=== PATIENT | female | born 1995 ===

== ENCOUNTER 2024-09-16 13:06 | Inpatient (IN) | payer BC, SELFPAY ==
--- NOTE | ~2024-09-16 | XR_ITS ---
CLINICAL HISTORY: left shoulder pain 4 view left shoulder Comparison: None Findings: Bones intact. No dislocations. No significant loss of joint space or osteophytes. No erosions. No radiopaque foreign body. IMPRESSION: 1. No acute findings This document has been electronically signed by: Karla Kaplan MD on 09/16/2024 17:37:06
--- NOTE | ~2024-09-16 | XR_ITS ---
CLINICAL HISTORY: left wrist pain 4 view left hand Comparison: None Findings: Bones intact. No dislocations. 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 No significant arthritic change. No erosions. No radiopaque foreign body. IMPRESSION: No acute findings. 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 This document has been electronically signed by: Karla Kaplan MD on 09/16/2024 17:44:36
--- NOTE | ~2024-09-16 | XR_ITS ---
EXAMINATION: XR MANDIBLE CLINICAL INFORMATION: left mandible trauma COMPARISON: None available. TECHNIQUE: 5 views of the mandible were obtained. FINDINGS: There are no fractures or dislocations. TM joints appear aligned. No bone, joint or soft tissue abnormality is demonstrated. Mandible appears intact. No air-fluid levels in the sinuses. There are nose rings present. XR/XR mandible <4V IMPRESSION: No acute bony abnormalities. Electronically signed by: Jasper Stroud MD 09/20/2024 08:46 AM [facility]
--- NOTE | 2024-09-16 13:13 | ED_ITS ---
HPI - Psych General Chief Complaint: Psychiatric Symptoms Stated Complaint: SI Time Seen by Provider: 09/16/24 13:12 Source: EMS Mode of arrival: EMS History of Present Illness HPI Narrative: 28 years old the patient was brought by ambulance complaining of SI, she was extremely agitated she was restrained by the police. She is now more calm cooperative complaint: suicidal ideation and feels depressed Onset (ago): hour(s) (2) Duration: constant History of same: Yes Relieving factors: none Exacerbating factors: none Associated psychiatric symptoms: none Related Data Allergies Allergy/AdvReac Type Severity Reaction Status Date / Time amoxicillin Allergy Unknown Verified 09/16/24 13:52 Iodinated Contrast Media Allergy Unknown Verified 09/16/24 13:52 [IV Contrast Dye] shrimp Allergy Unknown Verified 09/16/24 13:52 Review of Systems Constitutional: Constitutional: Reports no additional constitutional complaints Cardiovascular: Cardiovascular: Reports no additional cardiovascular complaints Psychiatric: Psychiatric: Reports no additional psychiatric complaints [facility] Past Medical History Attestation statement: The following information was validated with the patient. [facility] Narrative: Depression Physical Exam Vital Signs: Vital Signs: Last Vital Signs Resp 16 09/16/24 13:48 BMI result Body Mass Index 39.1 Const: General: well developed, alert and awake Nutritional Appearance: well nourished Orientation/consciousness: patient oriented x3 HEENT: Head: Yes normal to inspection General nose exam: Normal external nose present Face and sinus: Yes normal facial exam Mouth: Normal oral and palatal mucosa present Neck: Neck: Yes normal visual inspection Chest: Chest palpation & inspection: normal inspection of the chest Resp: Effort & Inspection: normal respiratory effort Auscultation: clear to auscultation bilaterally Cardio: Jugular venous distension: no JVD Rate: regular rate Rhythm: regular rhythm GI: Inspection: Yes normal to inspection Palpation (GI): Soft to palpation and not firm Auscultation: normal bowel sounds Neuro: General: patient oriented x3 Psych: Speech and movement: Clear speech present Affect: Anxious affect present Course Reevaluation(s) Reevaluation #1: Patient was seen by crisis the patient is inpatient level of care Section 12 bed search Time: 15:25 Medications Administered Discontinued Medications Generic Name Dose Route Start Last Admin Trade Name Freq PRN Reason Stop Dose Admin Lorazepam 2 mg 09/16/24 13:12 09/16/24 13:15 Lorazepam 1 Mg Tablet PO 02/24/25 13:13 2 mg ONCE ONE Administration Medical Decision Making Lab Data Labs: Lab Results 09/16/24 Range/Units 12:21 Urine Color Yellow Urine Appearance Clear Urine pH 7.0 (5.0-9.0) Ur Specific [place] 1.010 (1.005-1.025) Urine Protein Negative (Neg-Trace) mg/dL Urine Glucose (UA) Negative (Negative) mg/dL Urine Ketones Negative (Negative) mg/dL Urine Blood Negative (Negative) Urine Nitrite Negative (Negative) Ur Leukocyte Esterase Negative (Negative) Urine Test NEGATIVE (NEGATIVE) Urine Opiates Screen Not Detected (Not Detect) Ur Buprenorphine Scrn Not Detected (Not Detect) ng/mL Ur Oxycodone Screen Not Detected (Not Detect) ng/mL Urine Methadone Screen Not Detected (Not Detect) ng/mL Urine Fentanyl Screen Not Detected (Not Detect) Ur Barbiturates Screen Not Detected (Not Detect) Ur Phencyclidine Scrn Not Detected (Not Detect) Ur Amphetamines Screen Not Detected (Not Detect) U Benzodiazepines Scrn Not Detected (Not Detect) Urine Cocaine Screen Not Detected (Not Detect) U Marijuana (THC) Screen POSITIVE H (Not Detect) Discharge Plan Discharge Clinical Impression: Suicidal ideations Patient Disposition: Still a Patient
[2024-09-16] MEDS: LORazepam 1 MG TABLET 2 MG PO (13:15)
--- NOTE | 2024-09-16 13:34 | PC.NURSE ---
patient presents with PD presence on section 12, patient hand cuffed bilat hands and ankles in retraints. patient brought in for SI statements over span of 1 week per HPD. 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 patient then told girlfriend they did not want to be alive anymore, that they would go into the [place] and not be found, and to take certain belongings. patient is refusing to give any information to staff, patient refusing to wear patient bracelet stating thats not their name when asking patient preferred name and pronouns patient tells staff to fuck off. patient uncooperative during changeover process, ED charge nurse with this RN for safety in bathroom, patient eventually changed into hospital attire. patient belongings secured by security. patient agreeable to take meds per SEP. patient has sitter 1:1 for safety, UA sent.
[2024-09-16 13:43] LABS: UPreg QC Valid YES; Urine Pregnancy NEGATIVE (NEGATIVE)
[2024-09-16 13:44] LABS: Appearance Urine Clear; Color Urine Yellow; Glucose Urine UA Negative (Negative); Leukocyte Esterase Urine Negative (Negative); Nitrite Urine Negative (Negative); Urine Blood Negative (Negative); Urine Ketones Negative (Negative); Urine Protein Negative (Neg-Trace)
[2024-09-16 13:48] VITALS: RESP 16; BMI 39.1
[2024-09-16 13:54] LABS: Amphetamine Screen Urine Not Detected (Not Detect); Barbiturates, Urine Not Detected (Not Detect); Benzodiazepines Screen Urine Not Detected (Not Detect); Buprenorphine Scr Not Detected (Not Detect); Cannabinoid Screen Urine POSITIVE (Not Detect); Cocaine Screen Urine Not Detected (Not Detect); Fentanyl, urine Not Detected (Not Detect); Methadone Screen, Urine Not Detected (Not Detect); Opiate Screen Urine Not Detected (Not Detect); Oxycodone Screen Urine Not Detected (Not Detect); Phencyclidine Screen Urine Not Detected (Not Detect)
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
--- NOTE | 2024-09-16 19:06 | PC.NURSE ---
patient refusing to be cooperative with med rec, stating, I don't want to be admitted so why would i help you with anything.
--- NOTE | 2024-09-16 19:43 | PC.NURSE ---
Trevort found to be sleeping with blankets around head and neck, staff went in to removed all blanekts for safety of patient at this time. Patient used explitive language towards staff. will continue to monitor the situation.
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
--- NOTE | 2024-09-16 19:51 | PC.NURSE ---
Addendum entered by Clemencia Singh RN 09/16/24 22:08: Patient stated, i will shove that medication down your throat. quit asking me. Original Note: Offered PRN medication, patient would not respond to staff.
--- NOTE | 2024-09-16 20:05 | PC.NURSE ---
Security here for safety again. Patient upset that phone was turned off. Phone was turned off at her girl friends request because she was repeatedly calling over and over. Patient then went to room, threw chair out of room. took off sheet and pillow case and wrapped herelf in them in the corner of the room around her head again. Sheet and pillow case were removed for patient safety/
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
--- NOTE | 2024-09-16 20:39 | PC.NURSE ---
Patient asked to speak to someone from care team; Ludy presented to the door to have a conversation with patient and they were berating not only Ludy but other staff in the vicinity. We have offered to have the mattress brought back and pillows but patient states that she will just put everything back over head and around neck again if given back.
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
[2024-09-16] MEDS: Haloperidol Lactate 5 MG/ML VIAL IM ×2 (21:30→23:31)
[2024-09-16] MEDS: diphenhydrAMINE HCL 50 MG/ML VIAL IM (21:30)
[2024-09-16] MEDS: LORazepam 2 MG/ML VIAL IM ×2 (21:30→23:29)
--- NOTE | 2024-09-16 22:31 | PC.NURSE ---
This RN offered patient water while in restraints. Patient refused water.
--- NOTE | 2024-09-16 22:43 | PC.NURSE ---
patient asking for water, patient given water.
--- NOTE | 2024-09-16 22:44 | PC.NURSE ---
Patient offered tylenol after complaining of jaw pain. Patient refused tylenol
--- NOTE | 2024-09-16 23:57 | PC.NURSE ---
patient continues as irritable and arugmentative in restraint, prior to t.ws arrival staff relay she has been dirsuptive and spitting at staff. client is given criteria to move forward out of restraint, prior to administration of medication patient seemed amenable to oral medications then later swearing at staff.will continue to monitor and anticipate postivie effects of medications.
[2024-09-17 06:00] VITALS: RESP 16
--- NOTE | 2024-09-17 07:08 | PC.NURSE ---
Assumed care of patient at 0645, patient appears to be sleeping, respirations even and unlabored, no apparent distress noted. Per night RN, patient received multiple IM medications due to verbal aggression episodes. Continue plan of care for IPLOC
[2024-09-17 08:08] VITALS: RESP 14
--- NOTE | 2024-09-17 12:31 | PHA.MEDREC ---
Addendum entered by Maco Fernández RPh 09/17/24 14:26: Med rec was reviewed by [facility]. Original Note: Pharmacy Consult ? Medication Reconciliation Pharmacy reviewed med rec done by nursing. Claims matches what was confirmed.
[2024-09-17 15:07] VITALS: RESP 18
--- NOTE | 2024-09-17 15:07 | PC.NURSE ---
Patient has been sleeping, respirations even and unlabored, no apparent distress noted. Plan for admission hopefully tomorrow due to staffing issues on floor
[2024-09-18 06:36] VITALS: BP 106/61; PULSE 87; RESP 16; TEMP 36.4; O2SAT 96
--- NOTE | 2024-09-18 07:31 | PC.NURSE ---
Assumed care of patient at 0645, patient appears to be sleeping, respirations even and unlabored, no apparent distress noted. Continue plan of care fot iploc
--- NOTE | 2024-09-18 15:14 | PC.NURSE ---
Assumed care of this patient at 1500, patient resting on bed at this time, resps even / unlabored.
--- NOTE | 2024-09-18 16:18 | PC.NURSE ---
Patient's significant other Marisabel called w/ patient's therapist's number Elly [phone], requested to give number to patient when patient wakes up.
[2024-09-18] MEDS: Acetaminophen 325 MG TABLET 650 MG PO (17:26)
--- NOTE | 2024-09-18 18:37 | PC.NURSE ---
Pt. continues to refuse lab work.
[2024-09-18 21:40] VITALS: BP 140/87; PULSE 110; RESP 18; TEMP 36.4; O2SAT 97
[2024-09-18 22:31] VITALS: BP 140/87; PULSE 110; TEMP 36.4; O2SAT 97
--- NOTE | 2024-09-19 04:46 | PC.ADMIT ---
Patient arrived on unit at 2217 from [facility] having declined to sign CV. Hina prefers to be called Tatiana and uses they/them pronouns. Tatiana presented to [facility] secondary to stating via text and phone call that she doesn't want to be alive anymore. Patient is alert and oriented x4 with poor eye contact and low tone, mumbled speech. Patient denies SI at this time. Safety check performed, vital signs and height/weight obtained. Oriented to unit. Placed on 15 minute checks and went to bed. Tatiana has remained in room throughout the shift and appears to have been sleeping soundly. Tox screen positive for cannabis. Patient reports having been off medications. Patient reports having a therapist and psychiatrist. Denies trauma history. Reports having stable housing and work.
[2024-09-19 08:00] VITALS: BP 112/59; PULSE 94; RESP 16; TEMP 36.9; O2SAT 97
[2024-09-19] MEDS: Acetaminophen 325 MG TABLET 650 MG PO ×2 (08:56→17:15)
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
[2024-09-19] MEDS: Omeprazole 20 MG CAPSULE.DR PO (09:25)
[2024-09-19] MEDS: Albuterol Sulfate 90 MCG 8 GM INHALER 2 PUFF INHALE (19:00)
[2024-09-19 19:48] VITALS: BP 130/78; PULSE 99; TEMP 37.6; O2SAT 99
[2024-09-20 08:00] VITALS: BP 118/67; PULSE 77; TEMP 36.9; O2SAT 96
[2024-09-20] MEDS: Albuterol Sulfate 90 MCG 8 GM INHALER 2 PUFF INHALE ×2 (08:56→14:51)
[2024-09-20] MEDS: Omeprazole 20 MG CAPSULE.DR PO (08:57)
[2024-09-20] MEDS: Acetaminophen 325 MG TABLET 650 MG PO ×2 (09:25→21:43)
[2024-09-20] MEDS: Ibuprofen 800 MG TABLET PO (09:55)
--- NOTE | 2024-09-20 11:17 | HO.PSYCHPN ---
Subjective Subjective Date of Service: 09/20/24 Reason For Visit: SI Subjective Notes: Section 12B Healthcare Proxy: No Guardianship: No Medical Problems Affecting Mental Status: No Interim History: Asking to discharge. Section XIIB expires 09/23/24. Declines medication intervention, group work, individual work. This is a waste of resources and I am bored. We will continue to monitor and be available as needed. Medication Compliance: No Side effects from medications: No Attending Groups: No Review of Systems Acute medical concerns: No Review of Systems Review of Systems denies Mental Status Exam Mental Status Exam Patient Appearance: Appropriate Patient Orientation: Person, Place, Time and Situation Level of Consciousness: Alert Patient Behavior: Guarded, Talkative and Good Eye Contact Mood Description: Suspicious and Withdrawn Affect Description: Withdrawn Patient Cognition Impaired: No Ability to Follow Directions: Good Speech Pattern: Spontaneous Speech Memory Description: Intact Hallucinations: None Delusions: Not Present Thought Content: positive for Suicidal Ideation (pt denies) Depressive Symptoms: Thoughts of /Suicide (pt denies) Judgement: Fair Diagnostics Vital Signs (24Hr): Vital Signs - 24 hr 09/19/24 19:48 09/20/24 08:00 Temperature 99.7 F 98.4 F Pulse Rate 99 77 Blood Pressure 130/78 118/67 Pulse Oximetry 99 96 Oxygen Delivery Method Room Air Room Air BMI result Body Mass Index 39.1 Imaging Radiology Impressions: ITS Impressions Mandible X-Ray 09/20/24 08:00 IMPRESSION: No acute bony abnormalities. Electronically signed by: Jasper Stroud MD 09/20/2024 08:46 AM [facility] [place] Medications Medications Current Medications Acetaminophen (Acetaminophen 325 Mg Tablet) 650 mg PO Q6H PRN PRN Reason: Headache/Pain, Scale 1-10 Last Admin: 09/20/24 09:25 Dose: 650 mg Al Hydroxide/Mg Hydroxide (Magnesium Hydrox/Alum Hydrox 30 Ml Oral.Susp) 30 ml PO Q6H PRN PRN Reason: Heartburn/Nausea Albuterol Sulfate (Albuterol Sulfate 90 Mcg 8 Gm Inhaler) 2 puff INHALE QID PRN PRN Reason: dyspnea Last Admin: 09/20/24 08:56 Dose: 2 puff Hydroxyzine HCl (Hydroxyzine Hcl 25 Mg Tablet) 25 mg PO Q6H PRN PRN Reason: mild anxiety Ibuprofen (Ibuprofen 800 Mg Tablet) 800 mg PO Q8H PRN PRN Reason: severe pain Last Admin: 09/20/24 09:55 Dose: 800 mg Lorazepam (Lorazepam 1 Mg Tablet) 1 mg PO DAILY PRN PRN Reason: severe anxiety Magnesium Hydroxide (Milk Of Magnesia 30 Ml Oral.Susp) 30 ml PO DAILY PRN PRN Reason: Constipation Nicotine (Nicotine 21 Mg Patch.Td24) 21 mg TRANSDERMA DAILY PRN PRN Reason: smoking cessation Nicotine Polacrilex (Nicotine Polacrilex 2 Mg Gum) 4 mg BUCCAL Q2H PRN PRN Reason: Nicotine Cravings Olanzapine (Olanzapine 5 Mg Tablet) 5 mg PO TID PRN PRN Reason: agitation Omeprazole (Omeprazole 20 Mg Capsule.Dr) 20 mg PO DAILY@0630 SYED Last Admin: 09/20/24 08:57 Dose: 20 mg Trazodone HCl (Trazodone Hcl 50 Mg Tablet) 50 mg PO BEDTIME MRX1 PRN PRN Reason: Insomnia Allergies Allergies Allergy/AdvReac Type Severity Reaction Status Date / Time amoxicillin Allergy Unknown Verified 09/16/24 13:52 Iodinated Contrast Media Allergy Unknown Verified 09/16/24 13:52 [IV Contrast Dye] shrimp Allergy Unknown Verified 09/16/24 13:52 Assessment & Plan Assessment & Plan (1) MDD (major depressive disorder), recurrent severe, without psychosis: Status: Acute Code(s): F33.2 - Major depressive disorder, recurrent severe without psychotic features (2) PTSD (post-traumatic stress disorder): Status: Acute Code(s): F43.10 - Post-traumatic stress disorder, unspecified Plan Patient is 28-year-old female (trans male?), they/them, with history of Austism, PTSD, depression, anxiety who presents for suicidal statements in the community. Patient is guarded and reticent, with downcast affect. Patient reports that this admission is a complete misunderstanding, the people in the community over reacted and that patient should be discharged immediately. Collateral provided information to the ED, saying that patient texted that they did not want to be alive anymore, would go to the [place] were no one would find them... And that at work, patient made a reference to putting their name on the whiteboard which is the practice of the job site to put someone's name there who has committed suicide. Patient denies texting anyone any suicidal statements; they say that the reference to putting their name on the whiteboard was just an offhand comment and without any real meaning. When asked why people were concerned that patient might be suicidal, patient explained the following: -week ago, while at work, patient through their phone in frustration -this past Monday, they had a Meeting w/ bosses was about a corrective action regarding this incident -after this meeting, patient says they texted friends asking for help to clean up the Fridge and that it could have any of the food they wanted -after the techs they went to sleep and did not answer the phone -patient surmises that people miss understood the text and because they did not answer the phone, became worried -Patient denies any depression or any history of depression; again denies any SI at all or that they made any SI statements. Later patient's partner/girlfriend showed up and confirmed that patient did in fact make suicidal statements and that patients depression had been worse over the past weeks. Patient's girlfriend also confirmed that patient did not want her to disclose this information to team, believing that this information would delay discharge 09/20/24: Continue plan of care Mandible x rays WNL Formulation/clinical reasoning: Patient has history depression which is confirmed to have been worsening over the past few weeks;; because patient wants discharge is minimizing depressive symptoms. Recently stopped Wellbutrin which was not effective. Currently patient does not want any help with medication management for anxiety or depression and continues to ask for discharge -patient denied any history of SI or SA however patient is currently not a reliable historian -patient reports history of anxiety with panic attacks 3 times a week however says able to cope with it Plan: Section 12 B Q 15 minute checks Continue home meds: vyvanse 30mg when working Ativan 0.5mg prn allergy/antacid Will get left side mandible x-ray; patient was restrained in the ED and says can feel jaw pain Reason for continued inpatient stay Substantial Risk for: rapid decompensation Time Spent With Patient Time: Total time managing care of this patient today ____ minutes.
[2024-09-20 20:00] VITALS: BP 131/84; PULSE 89; TEMP 36.4; O2SAT 98
[2024-09-20] MEDS: Loratadine 10 MG TABLET PO (21:43)
[2024-09-21] MEDS: Omeprazole 20 MG CAPSULE.DR PO (06:58)
[2024-09-21] MEDS: Loratadine 10 MG TABLET PO (08:41)
[2024-09-21] MEDS: Albuterol Sulfate 90 MCG 8 GM INHALER 2 PUFF INHALE (09:15)
[2024-09-21 09:31] VITALS: BP 122/78; PULSE 70; RESP 18; TEMP 36.5; O2SAT 98
[2024-09-21] MEDS: Ibuprofen 800 MG TABLET PO (13:25)
--- NOTE | 2024-09-21 18:17 | HO.PSYCHPN ---
Subjective Subjective Date of Service: 09/21/24 Reason For Visit: SI Interim History: asking for discharge, denies safety concerns. per staff, no schedule meds, doesn't want any. works for [employer] discharging monday. Mental Status Exam Mental Status Exam Patient Appearance: Appropriate Patient Orientation: Person, Place, Time and Situation Level of Consciousness: Alert Patient Behavior: Guarded and Good Eye Contact Mood Description: Suspicious and Withdrawn Affect Description: Withdrawn Patient Cognition Impaired: No Ability to Follow Directions: Good Speech Pattern: Spontaneous Speech Memory Description: Intact Hallucinations: None Delusions: Not Present Thought Content: positive for Suicidal Ideation (pt denies) Depressive Symptoms: Thoughts of /Suicide (pt denies) Judgement: Fair Diagnostics Vital Signs (24Hr): Vital Signs - 24 hr 09/20/24 20:00 09/21/24 09:31 Temperature 97.5 F 97.7 F Pulse Rate 89 70 Respiratory Rate 18 Blood Pressure 131/84 122/78 Pulse Oximetry 98 98 Oxygen Delivery Method Room Air Room Air BMI result Body Mass Index 39.1 Imaging Radiology Impressions: ITS Impressions Mandible X-Ray 09/20/24 08:00 IMPRESSION: No acute bony abnormalities. Electronically signed by: Jasper Stroud MD 09/20/2024 08:46 AM [facility] [place] Medications Medications Current Medications Acetaminophen (Acetaminophen 325 Mg Tablet) 650 mg PO Q6H PRN PRN Reason: Headache/Pain, Scale 1-10 Last Admin: 09/20/24 21:43 Dose: 650 mg Al Hydroxide/Mg Hydroxide (Magnesium Hydrox/Alum Hydrox 30 Ml Oral.Susp) 30 ml PO Q6H PRN PRN Reason: Heartburn/Nausea Albuterol Sulfate (Albuterol Sulfate 90 Mcg 8 Gm Inhaler) 2 puff INHALE QID PRN PRN Reason: dyspnea Last Admin: 09/21/24 09:15 Dose: 2 puff Hydroxyzine HCl (Hydroxyzine Hcl 25 Mg Tablet) 25 mg PO Q6H PRN PRN Reason: mild anxiety Ibuprofen (Ibuprofen 800 Mg Tablet) 800 mg PO Q8H PRN PRN Reason: severe pain Last Admin: 09/21/24 13:25 Dose: 800 mg Loratadine (Loratadine 10 Mg Tablet) 10 mg PO DAILY SYED Last Admin: 09/21/24 08:41 Dose: 10 mg Lorazepam (Lorazepam 1 Mg Tablet) 1 mg PO DAILY PRN PRN Reason: severe anxiety Magnesium Hydroxide (Milk Of Magnesia 30 Ml Oral.Susp) 30 ml PO DAILY PRN PRN Reason: Constipation Nicotine (Nicotine 21 Mg Patch.Td24) 21 mg TRANSDERMA DAILY PRN PRN Reason: smoking cessation Nicotine Polacrilex (Nicotine Polacrilex 2 Mg Gum) 4 mg BUCCAL Q2H PRN PRN Reason: Nicotine Cravings Olanzapine (Olanzapine 5 Mg Tablet) 5 mg PO TID PRN PRN Reason: agitation Omeprazole (Omeprazole 20 Mg Capsule.Dr) 20 mg PO DAILY@0630 [facility] TO [facility] Last Admin: 09/21/24 06:58 Dose: 20 mg Trazodone HCl (Trazodone Hcl 50 Mg Tablet) 50 mg PO BEDTIME MRX1 PRN PRN Reason: Insomnia Allergies Allergies Allergy/AdvReac Type Severity Reaction Status Date / Time amoxicillin Allergy Unknown Verified 09/16/24 13:52 Iodinated Contrast Media Allergy Unknown Verified 09/16/24 13:52 [IV Contrast Dye] shrimp Allergy Unknown Verified 09/16/24 13:52 Assessment & Plan Assessment & Plan (1) MDD (major depressive disorder), recurrent severe, without psychosis: Status: Acute Code(s): F33.2 - Major depressive disorder, recurrent severe without psychotic features (2) PTSD (post-traumatic stress disorder): Status: Acute Code(s): F43.10 - Post-traumatic stress disorder, unspecified Plan Patient is 28-year-old female (trans male?), they/them, with history of Austism, PTSD, depression, anxiety who presents for suicidal statements in the community. Patient is guarded and reticent, with downcast affect. Patient reports that this admission is a complete misunderstanding, the people in the community over reacted and that patient should be discharged immediately. Collateral provided information to the ED, saying that patient texted that they did not want to be alive anymore, would go to the [place] were no one would find them... And that at work, patient made a reference to putting their name on the whiteboard which is the practice of the job site to put someone's name there who has committed suicide. Patient denies texting anyone any suicidal statements; they say that the reference to putting their name on the whiteboard was just an offhand comment and without any real meaning. When asked why people were concerned that patient might be suicidal, patient explained the following: -week ago, while at work, patient through their phone in frustration -this past Monday, they had a Meeting w/ bosses was about a corrective action regarding this incident -after this meeting, patient says they texted friends asking for help to clean up the Fridge and that it could have any of the food they wanted -after the techs they went to sleep and did not answer the phone -patient surmises that people miss understood the text and because they did not answer the phone, became worried -Patient denies any depression or any history of depression; again denies any SI at all or that they made any SI statements. Later patient's partner/girlfriend showed up and confirmed that patient did in fact make suicidal statements and that patients depression had been worse over the past weeks. Patient's girlfriend also confirmed that patient did not want her to disclose this information to team, believing that this information would delay discharge 09/20/24: Continue plan of care Mandible x rays WNL 09/21: denies safety concerns, declines medications, asking for discharge. continue observation and offer medication. planning for monday discharge. Formulation/clinical reasoning: Patient has history depression which is confirmed to have been worsening over the past few weeks;; because patient wants discharge is minimizing depressive symptoms. Recently stopped Wellbutrin which was not effective. Currently patient does not want any help with medication management for anxiety or depression and continues to ask for discharge -patient denied any history of SI or SA however patient is currently not a reliable historian -patient reports history of anxiety with panic attacks 3 times a week however says able to cope with it Plan: Section 12 B Q 15 minute checks Continue home meds: vyvanse 30mg when working Ativan 0.5mg prn allergy/antacid Will get left side mandible x-ray; patient was restrained in the ED and says can feel jaw pain Reason for continued inpatient stay Substantial Risk for: harm to self and inability to function Time Spent With Patient Time: Total time managing care of this patient today ____ minutes.
[2024-09-21 20:00] VITALS: BP 118/69; PULSE 87; TEMP 36.7; O2SAT 97
[2024-09-22] MEDS: Omeprazole 20 MG CAPSULE.DR PO (07:26)
[2024-09-22 08:00] VITALS: BP 143/78; PULSE 73; RESP 18; TEMP 36.6; O2SAT 99
[2024-09-22] MEDS: Loratadine 10 MG TABLET PO (08:43)
[2024-09-22] MEDS: Albuterol Sulfate 90 MCG 8 GM INHALER 2 PUFF INHALE (08:44)
--- NOTE | 2024-09-22 16:01 | HO.PSYCHPN ---
Subjective Subjective Date of Service: 09/22/24 Reason For Visit: SI Interim History: lying in bed, asking about discharge. per staff, no change, no issues. Mental Status Exam Mental Status Exam Patient Appearance: Appropriate Patient Orientation: Person, Place, Time and Situation Level of Consciousness: Alert Patient Behavior: Guarded and Good Eye Contact Mood Description: Suspicious and Withdrawn Affect Description: Withdrawn Patient Cognition Impaired: No Ability to Follow Directions: Good Speech Pattern: Spontaneous Speech Memory Description: Intact Hallucinations: None Delusions: Not Present Depressive Symptoms: Thoughts of /Suicide (pt denies) Judgement: Fair Diagnostics Vital Signs (24Hr): Vital Signs - 24 hr 09/21/24 20:00 09/22/24 08:00 Temperature 98.0 F 98 F Pulse Rate 87 73 Respiratory Rate 18 Blood Pressure 118/69 143/78 H Pulse Oximetry 97 99 Oxygen Delivery Method Room Air Room Air BMI result Body Mass Index 39.1 Imaging Radiology Impressions: ITS Impressions Mandible X-Ray 09/20/24 08:00 IMPRESSION: No acute bony abnormalities. Electronically signed by: Jasper Stroud MD 09/20/2024 08:46 AM [facility] [place] Medications Current Medications Acetaminophen (Acetaminophen 325 Mg Tablet) 650 mg PO Q6H PRN PRN Reason: Headache/Pain, Scale 1-10 Last Admin: 09/20/24 21:43 Dose: 650 mg Al Hydroxide/Mg Hydroxide (Magnesium Hydrox/Alum Hydrox 30 Ml Oral.Susp) 30 ml PO Q6H PRN PRN Reason: Heartburn/Nausea Albuterol Sulfate (Albuterol Sulfate 90 Mcg 8 Gm Inhaler) 2 puff INHALE QID PRN PRN Reason: dyspnea Last Admin: 09/22/24 08:44 Dose: 2 puff Hydroxyzine HCl (Hydroxyzine Hcl 25 Mg Tablet) 25 mg PO Q6H PRN PRN Reason: mild anxiety Ibuprofen (Ibuprofen 800 Mg Tablet) 800 mg PO Q8H PRN PRN Reason: severe pain Last Admin: 09/21/24 13:25 Dose: 800 mg Loratadine (Loratadine 10 Mg Tablet) 10 mg PO DAILY SYED Last Admin: 09/22/24 08:43 Dose: 10 mg Lorazepam (Lorazepam 1 Mg Tablet) 1 mg PO DAILY PRN PRN Reason: severe anxiety Magnesium Hydroxide (Milk Of Magnesia 30 Ml Oral.Susp) 30 ml PO DAILY PRN PRN Reason: Constipation Nicotine (Nicotine 21 Mg Patch.Td24) 21 mg TRANSDERMA DAILY PRN PRN Reason: smoking cessation Nicotine Polacrilex (Nicotine Polacrilex 2 Mg Gum) 4 mg BUCCAL Q2H PRN PRN Reason: Nicotine Cravings Olanzapine (Olanzapine 5 Mg Tablet) 5 mg PO TID PRN PRN Reason: agitation Omeprazole (Omeprazole 20 Mg Capsule.Dr) 20 mg PO DAILY@0630 SYED Last Admin: 09/22/24 07:26 Dose: 20 mg Trazodone HCl (Trazodone Hcl 50 Mg Tablet) 50 mg PO BEDTIME MRX1 PRN PRN Reason: Insomnia Allergies Allergies Allergy/AdvReac Type Severity Reaction Status Date / Time amoxicillin Allergy Unknown Verified 09/16/24 13:52 Iodinated Contrast Media Allergy Unknown Verified 09/16/24 13:52 [IV Contrast Dye] shrimp Allergy Unknown Verified 09/16/24 13:52 Assessment & Plan Assessment & Plan (1) MDD (major depressive disorder), recurrent severe, without psychosis: Status: Acute Code(s): F33.2 - Major depressive disorder, recurrent severe without psychotic features (2) PTSD (post-traumatic stress disorder): Status: Acute Code(s): F43.10 - Post-traumatic stress disorder, unspecified Plan Patient is 28-year-old female (trans male?), they/them, with history of Austism, PTSD, depression, anxiety who presents for suicidal statements in the community. Patient is guarded and reticent, with downcast affect. Patient reports that this admission is a complete misunderstanding, the people in the community over reacted and that patient should be discharged immediately. Collateral provided information to the ED, saying that patient texted that they did not want to be alive anymore, would go to the [place] were no one would find them... And that at work, patient made a reference to putting their name on the whiteboard which is the practice of the job site to put someone's name there who has committed suicide. Patient denies texting anyone any suicidal statements; they say that the reference to putting their name on the whiteboard was just an offhand comment and without any real meaning. When asked why people were concerned that patient might be suicidal, patient explained the following: -week ago, while at work, patient through their phone in frustration -this past Monday, they had a Meeting w/ juan ms was about a corrective action regarding this incident -after this meeting, patient says they texted friends asking for help to clean up the Fridge and that it could have any of the food they wanted -after the techs they went to sleep and did not answer the phone -patient surmises that people miss understood the text and because they did not answer the phone, became worried -Patient denies any depression or any history of depression; again denies any SI at all or that they made any SI statements. Later patient's partner/girlfriend showed up and confirmed that patient did in fact make suicidal statements and that patients depression had been worse over the past weeks. Patient's girlfriend also confirmed that patient did not want her to disclose this information to team, believing that this information would delay discharge 09/20/24: Continue plan of care Mandible x rays WNL 09/21: denies safety concerns, declines medications, asking for discharge. continue observation and offer medication. planning for monday discharge. 09/22: as for yesterday. Formulation/clinical reasoning: Patient has history depression which is confirmed to have been worsening over the past few weeks;; because patient wants discharge is minimizing depressive symptoms. Recently stopped Wellbutrin which was not effective. Currently patient does not want any help with medication management for anxiety or depression and continues to ask for discharge -patient denied any history of SI or SA however patient is currently not a reliable historian -patient reports history of anxiety with panic attacks 3 times a week however says able to cope with it Plan: Section 12 B Q 15 minute checks Continue home meds: vyvanse 30mg when working Ativan 0.5mg prn allergy/antacid Will get left side mandible x-ray; patient was restrained in the ED and says can feel jaw pain Reason for continued inpatient stay Substantial Risk for: harm to self Time Spent With Patient Time: Total time managing care of this patient today ____ minutes.
[2024-09-22 20:00] VITALS: BP 127/82; PULSE 88; TEMP 37.3; O2SAT 97
[2024-09-23] MEDS: Omeprazole 20 MG CAPSULE.DR PO (06:56)
[2024-09-23] MEDS: Albuterol Sulfate 90 MCG 8 GM INHALER 2 PUFF INHALE (06:58)
[2024-09-23 08:00] VITALS: BP 111/61; PULSE 89; TEMP 36.8; O2SAT 98
[2024-09-23 08:32] VITALS: TEMP 36.9
--- NOTE | 2024-09-23 10:45 | PM.PSYDC ---
DS: Providers Provider Date of Service: 09/23/24 Date of admission: 09/18/24 19:04 Date of discharge: 09/23/24 Primary care physician: Unknown Physician Attending physician on admission: Pato Buchanan Attending physician on discharge: Pato Buchanan DS: Diagnosis Discharge Diagnosis (1) MDD (major depressive disorder), recurrent severe, without psychosis: Status: Acute (2) PTSD (post-traumatic stress disorder): Status: Acute DS: Medications Discharge Medications Home Medications: Home Medications ?Medication ?Instructions ?Recorded ?Confirmed albuterol sulfate 90 mcg/actuation 2 puff inhalation QID PRN dyspnea 09/17/24 09/17/24 aerosol inhaler Previous Rx's ?Medication ?Instructions ?Recorded buspirone 5 mg tablet 5 mg PO BID 30 days #60 tabs 09/23/24 clonidine HCl 0.1 mg tablet 0.1 mg PO DAILY PRN mild/moderate 09/23/24 anxiety 30 days #30 tabs lisdexamfetamine 30 mg capsule 30 mg PO QAM attention deficit 09/23/24 hyperactivity disorder 30 days #30 caps lorazepam 1 mg tablet 1 mg PO DAILY PRN severe anxiety 09/23/24 30 days #14 tabs omeprazole 20 mg capsule,delayed 20 mg PO DAILY@0630 30 days #30 09/23/24 release caps ondansetron 4 mg disintegrating 4 mg translingual Q8H PRN Nausea 09/23/24 tablet 30 days #30 tabs Mental Status Exam Mental Status Exam Narrative: Pt is alert and oriented; behavior is more cooperative, calm; patient is not in distress; dressed in casual attire with adequate grooming and hygiene; mood is described as fine and affect congruent, noticeably brighter; eye contact appropriate; Speech is normal rate, volume and prosody and not pressured; no psychomotor agitation/retardation present; thought process is organized and goal directed; Thought content is on discharge, tx; otherwise pertinent to relevant topics and without any delusional content, paranoid ideations or grandiosity; denies any SI/HI. There is no evidence of perceptual disturbance. Patients insight and judgment appear intact; adequate. Data Data Completed and Pending Completed studies during hospitalization [Text1]: 09/16/24 12:21 Urine Color Yellow Urine Appearance Clear Urine pH 7.0 Ur Specific [place] 1.010 Urine Protein Negative Urine Glucose (UA) Negative Urine Ketones Negative Urine Blood Negative Urine Nitrite Negative Ur Leukocyte Esterase Negative Urine Test NEGATIVE Urine Opiates Screen Not Detected Ur Buprenorphine Scrn Not Detected Ur Oxycodone Screen Not Detected Urine Methadone Screen Not Detected Urine Fentanyl Screen Not Detected Ur Barbiturates Screen Not Detected Ur Phencyclidine Scrn Not Detected Ur Amphetamines Screen Not Detected U Benzodiazepines Scrn Not Detected Urine Cocaine Screen Not Detected U Marijuana (THC) Screen POSITIVE H Imaging Diagnostic Imaging Impressions Mandible X-Ray 09/20/24 08:00 IMPRESSION: No acute bony abnormalities. Electronically signed by: Jasper Stroud MD 09/20/2024 08:46 AM [facility] DS: Summary Hospital Course Hospital Course: HPI: Patient is 28-year-old female (trans male?), they/them, with history of Austism, PTSD, depression, anxiety who presents for suicidal statements in the community. Patient is guarded and reticent, with downcast affect. Patient reports that this admission is a complete misunderstanding, the people in the community over reacted and that patient should be discharged immediately. Collateral provided information to the ED, saying that patient texted that they did not want to be alive anymore, would go to the [place] were no one would find them... And that at work, patient made a reference to putting their name on the whiteboard which is the practice of the job site to put someone's name there who has committed suicide. Patient denies texting anyone any suicidal statements; they say that the reference to putting their name on the whiteboard was just an offhand comment and without any real meaning. When asked why people were concerned that patient might be suicidal, patient explained the following: -week ago, while at work, patient through their phone in frustration -this past Monday, they had a Meeting w/ bosses was about a corrective action regarding this incident -after this meeting, patient says they texted friends asking for help to clean up the Fridge and that it could have any of the food they wanted -after the techs they went to sleep and did not answer the phone -patient surmises that people miss understood the text and because they did not answer the phone, became worried -Patient denies any depression or any history of depression; again denies any SI at all or that they made any SI statements. Later patient's partner/girlfriend showed up and confirmed that patient did in fact make suicidal statements and that patients depression had been worse over the past weeks. Patient's girlfriend also confirmed that patient did not want her to disclose this information to team, believing that this information would delay discharge Left mandible x-ray: IMPRESSION: No acute bony abnormalities. Hospital course: Depressed on admission though minimizing symptoms and events leading up to this admission. Patient has history depression which is confirmed to have been worsening over the past few weeks; Recently stopped Wellbutrin which was not effective. Currently patient does not want any help with medication management for anxiety or depression and continues to ask for discharge, saying that they will work out their psychiatric issues with outpatient provider. Patient denied any history of SI or SA. Patient does report history of anxiety with panic attacks 3 times a week however says able to cope with it. Throughout time in the unit Patient continued to deny any suicidality and want to discharge. Patient's partner came in and though confirmed patients recent depression; however she also volunteered that she likely over-reacted to patient's text messages because another friend of hers a month ago from suicide. Her partner reported to team that she felt patient was safe and not at risk for self-harm. Patient remained on the unit for another few days. Patient remained reticent, guarded, not wanting to talk much with providers. Eventually however patient shared that some of patient's resistance to being on the unit was because of their job and several people they had referred to the inpatient unit were actually also currently patients on the same unit; they said this awkwardness made it difficult to be more engaged. Patient did also acknowledge that they were also resisting treatment discussions out of their own frustration. On day of discharge patient was clearly with brighter affect and more forthcoming; they discussed some symptoms and said they will likely benefit from some medication adjustment to help with anxiety and agreed to trial of clonidine and BuSpar (risks/side-effects discussed), to which remote mortgage underwriter agreed. Patient maintained no SI and remain adamant about discharge as soon as possible, wanting to get back to work; 12 B which was coming due. Another provider who knows patient well, helped assess and agreed that patient was not at risk for self-harm and safe for discharge. While patient will likely continued to struggle with emotional reactivity, patient has been coping with such struggles on their own for years. Patient is returning to their partner who is supportive and remains future oriented. Patient is not in imminent risk for harm to self or others and request for discharge honored. Time spent discussing smoking cessation with patient: 3 to 10 minutes Status at Discharge Functional status at discharge: independent ambulation Overall status at discharge: patient is back to baseline Time Spent with Patient Time attestation: Total time managing care of this patient today _40___ minutes. Time spent: Greater than 30 minutes Specific discharge activities: Met with patient; discussed with team; prescriptions, charting Discharge Plan Discharge Anticipated Discharge Date/Time: 09/23/24 11:00 Patient Disposition: Home, Self-Care Discharge Diagnosis: MDD, recurrent, severe without psychosis in partial remission Referrals: [facility] [Other] - 1 Week (This is a same day walk-in intake for psychiatry and therapy. Walk-in Hours: M-F 10am - 12pm ) Physician,Unknown J [Primary Care Provider] - 1 Week Discharge Medications: New lorazepam 1 mg Tablet 1 mg PO DAILY PRN (Reason: severe anxiety) 30 Days Qty: 14 0RF omeprazole 20 mg Capsule,Delayed Release(Dr/Ec) 20 mg PO DAILY@0630 30 Days Qty: 30 0RF clonidine HCl 0.1 mg tablet 0.1 mg PO DAILY PRN (Reason: mild/moderate anxiety) 30 Days Qty: 30 0RF buspirone 5 mg tablet 5 mg PO BID 30 Days Qty: 60 0RF Continued albuterol sulfate 90 mcg/actuation HFA aerosol inhaler 2 puff INHALATION QID PRN (Reason: dyspnea) ondansetron 4 mg tablet,disintegrating 4 mg translingual Q8H PRN (Reason: Nausea) 30 Days Qty: 30 0RF lisdexamfetamine 30 mg capsule 30 mg PO QAM 30 Days Qty: 30 0RF Discharge Orders: Discharge Order (Routine); Ordered 09/23/24 Ordered By: Pato Buchanan Diet: Regular diet Activity on Discharge: As tolerated Stand Alone Forms: Patient Portal Discharge page, Community Support Print Language: Turkmen Care Plan Goals: Maintain mood and safe behaviors Take medications as prescribed Practice coping skills Continue with outpatient providers and reach out to them as needed Health Concerns: Mood stability and behaviors Plan of Treatment: Follow up with your PCP, psychiatric provider and other outpatient providers regarding above concerns Take medications as prescribed Assessment: Risk assessment at time of discharge:? Patient was interviewed prior to discharge and found to be fully oriented and without any SI or HI. Patient has improved insight and judgment and wants to continue treatment. Patient is not in imminent risk of harm to self or others and has a safety plan that includes presenting to the closest ER or calling 911 if feeling unsafe.? Patient has been observed closely by nursing and unit staff throughout admission; patient has not engaged in any behaviors that suggest dangerousness to self or others and has demonstrated appropriate behaviors and impulse control Discharge Date/Time: 09/23/24 10:50
== END 2024-09-23 10:50 | disposition home or self-care (01) | DRG 751 ==
LOC: HO.ED 09-17 13:40 → HO.PM5 09-18 19:13
PROVIDERS: Admitting Provider Psychiatry & Neurology Psychiatry; Emergency Provider Emergency Medicine; Visit Provider Psychiatry & Neurology Psychiatry
DX: F33.2 Major depressive disorder, recurrent severe without psychotic features (principal); R45.851 Suicidal ideations; F43.10 Post-traumatic stress disorder, unspecified; Z79.899 Other long term (current) drug therapy
CPT/HCPCS: 70100; 73030; 73110; 73130; 80307; 81003; 81025; 99285; J1200; J1630; J2060; S9485

== ENCOUNTER → 2024-09-16 16:35 | Outpatient (BNV) | payer BC, SELFPAY | PROVIDERS: Emergency Provider Emergency Medicine; Visit Provider Nuclear Medicine | DX: M25.532 Pain in left wrist (principal); M25.512 Pain in left shoulder | CPT/HCPCS: 73030; 73130 ==

== ENCOUNTER 2024-09-18 19:04 | Outpatient (BNV) | payer BC, SELFPAY | END 2024-09-20 08:00 | PROVIDERS: Admitting Provider Psychiatry & Neurology Psychiatry; Emergency Provider Emergency Medicine; Visit Provider Radiology Diagnostic Radiology | DX: S09.93XA Unspecified injury of face, initial encounter (principal) | CPT/HCPCS: 70100 ==

== ENCOUNTER → 2024-09-18 19:04 | Outpatient (BNV) | payer BC, SELFPAY | PROVIDERS: Admitting Provider Psychiatry & Neurology Psychiatry; Emergency Provider Emergency Medicine; Visit Provider Psychiatry & Neurology Psychiatry | DX: F33.2 Major depressive disorder, recurrent severe without psychotic features (principal); F43.10 Post-traumatic stress disorder, unspecified | CPT/HCPCS: 99222; 99231; 99239 ==